=== PATIENT | male | born 1960 | race Caucasian/White ===

== ENCOUNTER 2023-10-27 09:50 | Emergency (ER) | payer OTHER, SELFPAY ==
[2023-10-27 10:03] VITALS: BP 158/79; PULSE 66; RESP 16; TEMP 37.2; O2SAT 97
--- NOTE | 2023-10-27 10:28 | ED.GENADULT ---
HPI - General Adult General Chief complaint: Extremity Problem,Nontraumatic Stated complaint: Both Feet Toe Pain Time Seen by Provider: 10/27/23 10:28 Source: patient Mode of arrival: ambulatory Limitations: no limitations History of Present Illness HPI narrative: 63 yo M with hx of MO presents with c/o cold, painful R great toe with purple color for 2 to 3 months. Symptoms getting worse. Does not have PCP. Has had similar symptoms to L great toe but no pain at this time. All systems reviewed and negative except as noted above. Related Data Allergies Allergy/AdvReac Type Severity Reaction Status Date / Time No Known Allergies Allergy Verified 10/27/23 11:33 Review of Systems Review of Systems: CONSTITUTIONAL: Denies fever, chills, or sweats. EYES: Denies visual changes, redness, or discharge. ENT: Denies rhinorrhea, congestion, sore throat, or otalgia. CARDIOVASCULAR: Denies chest pain, palpitations, or edema. RESPIRATORY: Denies cough or dyspnea. GASTROINTESTINAL: Denies abdominal pain, nausea, vomiting, or diarrhea. GENITOURINARY: Denies dysuria or hematuria. SKIN: Denies rash or itching. MUSCULOSKELETAL: Reports cold, painful, purple R great toe NEUROLOGIC: Denies headache, numbness, or weakness. PSYCHIATRIC: Denies anxiety or depression. All other systems reviewed are negative, except as documented in HPI. PMFSH Comments At time of signature, agree with nursing past medical, surgical, social and family history. There is no relevant family history pertinent to the presenting complaint. Exam Narrative: GENERAL: This is a well-nourished, well-developed patient, in no apparent distress. HEAD: normocephalic, atraumatic. EYES: PERRL. Sclera clear/white. Vision is grossly intact. EARS: External ears normal NOSE: External nose normal NECK: Neck supple, non-tender without lymphadenopathy, masses or thyromegaly. CARDIOVASCULAR: Regular rate and rhythm without murmurs, gallops, or rubs. RESPIRATORY: Clear to auscultation. Breath sounds equal bilaterally. No wheezes, rales, or rhonchi. SKIN: warm, Dry, intact with no suspicious lesions or rash, good texture and turgor. NEURO: awake, alert, and oriented to person, place and time. There were no obvious focal neurologic abnormalities. EXTREMITIES: unable to palpate DP or PT pulse bilaterally. used bedside doppler and found bilateral PT but DP absent bilaterally. R great, 2nd and 3rd toe cold and purple. L great toe also purple and cold. Course Course Level of Care: Express Care Visit Vital Signs Vital signs: Vital Signs Temperature 37.2 C 10/27/23 10:03 Pulse Rate 66 10/27/23 10:03 Respiratory Rate 16 10/27/23 10:03 Blood Pressure 158/79 H 10/27/23 10:03 Pulse Oximetry 97 10/27/23 10:03 Oxygen Delivery Room Air 10/27/23 10:03 Temperature 37.2 C 10/27/23 10:03 Pulse Rate 66 10/27/23 10:03 Respiratory Rate 16 10/27/23 10:03 Blood Pressure 158/79 H 10/27/23 10:03 Pulse Oximetry 97 10/27/23 10:03 Oxygen Delivery Room Air 10/27/23 10:03 Transfer Transfered to: [place] Transportation: Other ( private vehicle) Transfer rationale: transferring to ER for Doppler bilateral lower extremity ultrasound due to in DP pulse bilaterally. Accepting physician: Octavia NEAL Medical Decision Making MDM Narrative Medical decision making narrative: absent bilateral dorsalis pedis pulse with bedside doppler Vital Signs Vital Signs: Vital Signs Temperature 37.2 C 10/27/23 10:03 Pulse Rate 66 10/27/23 10:03 Respiratory Rate 16 10/27/23 10:03 Blood Pressure 158/79 H 10/27/23 10:03 Pulse Oximetry 97 10/27/23 10:03 Oxygen Delivery Room Air 10/27/23 10:03 Temperature 37.2 C 10/27/23 10:03 Pulse Rate 66 10/27/23 10:03 Respiratory Rate 16 10/27/23 10:03 Blood Pressure 158/79 H 10/27/23 10:03 Pulse Oximetry 97 10/27/23 10:03 Oxygen Delivery Room Air 10/27/23 10:03 D
== END 2023-10-27 11:02 | disposition short-term general hospital (02) ==
PROVIDERS: Emergency Provider Nurse Practitioner Family
DX: R09.89 Other specified symptoms and signs involving the circulatory and respiratory systems (principal); M79.674 Pain in right toe(s); I25.2 Old myocardial infarction; Z95.5 Presence of coronary angioplasty implant and graft
CPT/HCPCS: 99212; G0463

== ENCOUNTER 2023-10-27 11:28 | Emergency (ER) | payer OTHER, SELFPAY ==
--- NOTE | ~2023-10-27 | XR_ITS ---
Right foot Technique: AP, oblique, and lateral views were obtained. Clinical History: Pain Findings: No acute fracture or dislocation is seen. Prior ORIF of the distal fibula noted. Osseous al ignment is anatomic. Joint spaces are preserved without erosive or degenerative change. Soft tissues are unremarkable. Impression: No acute abnormality. Reviewed, dictated and finalized at location . Impression: No acute abnormality.
[2023-10-27 11:30] VITALS: BP 158/79; PULSE 56; RESP 13; TEMP 36.6; O2SAT 99
--- NOTE | 2023-10-27 14:34 | ED.GENADULT ---
HPI - General Adult General Chief complaint: Extremity Injury, Lower Stated complaint: RIGHT toe discolored Time Seen by Provider: 10/27/23 14:03 History of Present Illness HPI narrative: Patient is a 63-year-old male who presents to the emergency department this afternoon complaining of right toe pain. Patient states that he has been having this pain intermittently for the past 3+ months. He denies any history of diabetes, gout and denies any injuries precipitating his symptoms as far as he can remember. Patient states that he only feels the pain when he wears closed toed shoes that rub against his right great toe and when he puts a lot of pressure on his right great toe, otherwise denies any pain. Patient states that he has noticed some discoloration to his right toe but the discoloration is intermittent and resolves without any intervention. Patient states that when he woke up in the morning he noticed the discoloration but since then it has improved. Admits history of coronary artery disease and active tobacco use, no known history of peripheral vascular disease. Patient denies any symptoms or concerns at this time. Related Data Allergies Allergy/AdvReac Type Severity Reaction Status Date / Time No Known Allergies Allergy Verified 10/27/23 11:33 Review of Systems Review of Systems: All systems are reviewed and are negative unless stated otherwise in the HPI. Exam Narrative: General: Alert, awake, afebrile, in no acute distress. HEENT: PERRL, no rhinorrhea, no post nasal drip, oropharynx clear. Cardiovascular: Regular rate and rhythm, no murmurs, rubs or gallops, no peripheral edema. Respiratory: Clear to auscultation bilaterally, no tachypnea, no wheezing, no rhonchi, no rubs, no respiratory distress. Abdomen: Soft, nontender, nondistended, no rebound, no guarding, no peritoneal signs. Musculoskeletal: No joint swelling or deformity over the right great toe, no obvious discoloration noted over the right great toe, right foot/ toes warm to touch, intact capillary refill. Skin: No rashes or petechia, no signs of infection. Neurological: Alert and oriented to person, place, and time. Follows all commands. No focal deficits, speech is clear and fluent. Course Vital Signs Vital signs: Vital Signs Temperature 97.9 F 10/27/23 11:30 Pulse Rate 56 L 10/27/23 11:30 Respiratory Rate 13 10/27/23 11:30 Blood Pressure 158/79 H 10/27/23 11:30 Pulse Oximetry 99 10/27/23 11:30 Oxygen Delivery Room Air 10/27/23 11:30 Temperature 97.9 F 10/27/23 11:30 Pulse Rate 60 10/27/23 14:58 Respiratory Rate 16 10/27/23 14:58 Blood Pressure 136/82 10/27/23 14:58 Pulse Oximetry 97 10/27/23 14:58 Oxygen Delivery Room Air 10/27/23 11:30 Medical Decision Making MDM Narrative Medical decision making narrative: The patient was evaluated by myself in the emergency department. History is obtained from patient who is an independent historian and physical exam was performed. External medical records were reviewed at this time. Imaging studies obtained included right foot x-ray which was independently interpreted by me revealing no acute process, which is pending final radiology interpretation. Differential diagnosis considerations include peripheral vascular disease, toe dislocation, fracture, gout. Comorbidities impacting this visit include history of or current tobacco use and coronary artery disease. Patient was informed that due to his history of coronary artery disease and tobacco use that his symptoms could be due to peripheral vascular disease and was instructed that he needs to follow up with his advisory internship/primary care physician for further evaluation for peripheral vascular disease and patient is agreeable. I have evaluated and discussed social determinants of health with the patient that could potentially impact subsequent diagnosis and treatment plans. On repeat assessment of the jarrett
[2023-10-27 14:58] VITALS: BP 136/82; PULSE 60; RESP 16; O2SAT 97
== END 2023-10-27 14:59 | disposition home or self-care (01) ==
LOC: ANHED 14:42
PROVIDERS: Emergency Provider Emergency Medicine
DX: M79.674 Pain in right toe(s) (principal); I25.10 Atherosclerotic heart disease of native coronary artery without angina pectoris; F17.200 Nicotine dependence, unspecified, uncomplicated
CPT/HCPCS: 73630; 99283